=== PATIENT | male | born 2000 | race Hispanic/Latino ===

== ENCOUNTER 2025-01-22 11:14 | Emergency (ER) | payer SELFPAY ==
[2025-01-22] MEDS ORDERED: LIDOCAINE 2% W/EPI 1:200,000 MPF 20 ML VIAL IM ONE (11:42)
[2025-01-22] MEDS ORDERED: TDAP (DIPHTH,PERTUSS(ACELL),TET VAC) 0.5 ML VIAL IMVAC ONE (11:42)
[2025-01-22] MEDS ORDERED: HYDROCODONE/APAP 7.5/325 MG TAB ONE (11:42)
--- NOTE | 2025-01-22 13:03 | RAD REPORT ---
EXAM:Femur Left CLINICAL HISTORY: Left leg pain FINDINGS: No fracture seen Anterior soft tissue laceration mid to distal aspect of the leg. A radiopaque foreign body is not see n
--- NOTE | 2025-01-22 13:07 | ER ---
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 hb Coronavirus screen: At this time, the client does not indicate any symptoms associated with coronavirus-19. Ebola Screen: No symptoms or risks identified at this time. Initial Sepsis Screen: Does the patient meet any 2 criteria? No. Patient's initial sepsis screen is negative. Does the patient have a suspected source of infection? No. Patient's initial sepsis screen is negative. Risk Assessment: Do you want to hurt yourself or someone else? Patient reports no desire to harm self or others. Onset of symptoms was January 22, 2025. 11:36 Method Of Arrival: Ambulatory hb 11:36 Acuity: DANIELLE 4 hb Historical: - Allergies: 11:37 No Known Allergies; hb - Home Meds: 11:37 None [Active]; hb - PMHx: 11:37 None; hb - PSHx: 11:37 None; hb - Immunization history:: Adult Immunizations up to date. - Infectious Disease History:: Denies. - Social history:: Smoking status: Patient denies any tobacco usage or history of. Screenin:40 [facility] ED Fall Risk Assessment (Adult) History of falling in the last 3 months, aa5 including since admission No falls in past 3 months (0 pts) Confusion or Disorientation No (0 pts) Intoxicated or Sedated No (0 pts) Impaired Gait No (0 pts) Mobility Assist Device Used No (0 pt) Altered Elimination No (0 pt) Score/Fall Risk Level 0 - 2 = Low Risk Oriented to surroundings, Maintained a safe environment, Educated pt \T\ family on fall prevention, incl call for assistance when getting out of bed, Assessed \T\ reinforced patient's understanding of fall precautions. Abuse screen: Denies threats or abuse. Nutritional screening: No deficits noted. Tuberculosis screening: No symptoms or risk factors identified. Assessment: 11:40 General: Appears uncomfortable, Behavior is calm, cooperative. Pain: Complains of pain aa5 in left quadriceps Pain currently is 8 out of 10 on a pain scale. 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 Neuro: Level of Consciousness is awake, alert, obeys commands, Oriented to person, place, time, situation. Cardiovascular: Patient's skin is warm and dry. Respiratory: Airway is patent Respiratory effort is even, unlabored, Respiratory pattern is regular, symmetrical. GI: No signs and/or symptoms were reported involving the gastrointestinal system. : No signs and/or symptoms were reported regarding the genitourinary system. EENT: No signs and/or symptoms were reported regarding the EENT system. Derm: Skin is pink, warm \T\ dry. Musculoskeletal: Range of motion: intact in all extremities. Injury Description: Laceration sustained to left quadriceps is measuring approximately 3 in-4 in long, mild bleeding noted, bleeding controlled, gauze applied to site. Vital Signs: 11:36 BP 141 / 75; Pulse 111; Resp 16; Temp 98.3; Pulse Ox 100% ; Weight 58.97 kg; Height 5 hb ft. 1 in. ; Pain 7/10; 11:36 Body Mass Index 24.54 (58.97 kg, 155 cm) hb 11:36 Pain Scale: Adult hb ED Course: 11:18 Patient arrived in ED. cj3 11:18 Armando Kurtz PA is PHCP. cp 11:18 Adrian Atkins MD is Attending Physician. cp 11:32 Gisella Adams, RN is Primary Nurse. aa5 11:37 Triage completed. hb 11:38 Arm band placed on. hb 11:40 Patient has correct armband on for positive identification. Bed in low position. Call aa5 light in reach. Side rails up X 1. Adult w/ patient. Pulse ox on. NIBP on. 12:01 No provider procedures requiring assistance completed. aa5 12:42 XRAY Femur LEFT In Process Unspecified. EDMS 13:12 Dressings: non-adherent dressing x 1 left leg. zm 13:55 Patient did not have IV access during this emergency room visit. aa5 Administered Medications: 11:50 Drug: Hydrocodone-Acetaminophen PO (7.5 mg-325 mg) 1 tabs PO once; RASS on ADMIN: aa5 Combtv4, Very Agttd3, Agttd2, Rstlss1, AlertClm0, Drwsy-1, Lt Sdtn-2, Mod Sdtn-3, Dp Sdtn-4, UnArsble-5 Route: PO; 12:39 Follow up: Response: No adverse reaction aa5 11:55 Drug: Boostrix Tdap IM 0.5 ml IM once; as a single dose Route: IM; Site: right deltoid; aa5 12:39 Follow up: Response: No adverse reaction aa5 12:30 Drug: Lidocaine Infiltration (2 %) 20 ml 5 ml Infiltration once; with epinephrine jl7 {Note: administered by ERP.} Volume: 5 ml; Route: Infiltration; 13:12 Follow up: Response: No adverse reaction jl7 Medication: 11:55 Vaccine Information Statement (VIS) provided today. Questions and/or concerns aa5 addressed. VIS edition date: May 18, 2021. Outcome: 13:06 Discharge ordered by . david 13:55 Discharged to home ambulatory, jl7 13:55 Condition: stable 13:55 Discharge instructions given to patient, Instructed on discharge instructions, follow up and referral plans. medication usage, Demonstrated understanding of instructions, follow-up care, medications, Prescriptions given X 2, 13:56 Patient left the ED. jl7 Signatures: Dispatcher [employer] EDMS Gisella Adams, RN RN aa5 Armando Kurtz PA PA cp Baxter, Heather, RN RN Fili Guerrier RN RN jl7 Loraine Capellan Celeste 3
--- NOTE | 2025-01-22 13:07 | EDPHYS ---
Physician Documentation [facility] Name: Andres Proctor Age: 24 yrs Sex: Male : 2000 Arrival Date: 01/22/2025 Time: 11:14 Bed 6 Private MD: ED Physician Adrian Atkins HPI: 01/22 11:40 This 24 yrs old Male presents to ER via Ambulatory with complaints of cp Laceration To Leg. 11:40 The patient has a laceration occurred outdoors, and while using chainsaw The injury was cp accidental. The laceration(s) is(are) located on the lower left thigh. 11:40 Onset: The symptoms/episode began/occurred just prior to arrival. Associated signs and cp symptoms: The patient has no apparent associated signs or symptoms. Historical: - Allergies: 11:37 No Known Allergies; hb - Home Meds: 11:37 None [Active]; hb - PMHx: 11:37 None; hb - PSHx: 11:37 None; hb - Immunization history:: Adult Immunizations up to date. - Infectious Disease History:: Denies. - Social history:: Smoking status: Patient denies any tobacco usage or history of. ROS: 11:45 MS/extremity: Positive for laceration, of the left lower thigh, cp 11:45 Constitutional: history per hpi cp 11:45 Neuro: Negative for numbness, weakness, 11:45 All other systems are negative, Exam: 11:50 Constitutional: The patient appears in no acute distress, alert, awake, well developed, cp well nourished, uncomfortable, 11:50 Head/Face: Normocephalic, atraumatic. cp 11:50 Chest/axilla: Inspection: normal, 11:50 Cardiovascular: Rate: tachycardic, 11:50 Respiratory: the patient does not display signs of respiratory distress, Respirations: normal, no use of accessory muscles, no retractions, labored breathing, is not present, 11:50 Abdomen/GI: Inspection: abdomen appears normal, Palpation: abdomen is soft and non-tender, in all quadrants, 11:50 Back: pain, is absent, ROM is normal, 11:50 Musculoskeletal/extremity: Extremities: noted in the lower left thigh: transverse laceration 8 cm in length, mild active bleeding, no gross foreign body, fascia and body of muscle intact, ROM: full active range of motion, in the left knee, Perfusion: the extremity is normally perfused throughout, Sensation intact. 11:50 Neuro: Orientation: to person, place \T\ time. Mentation: is normal, Vital Signs: 11:36 BP 141 / 75; Pulse 111; Resp 16; Temp 98.3; Pulse Ox 100% ; Weight 58.97 kg; Height 5 hb ft. 1 in. ; Pain 7/10; 11:36 Body Mass Index 24.54 (58.97 kg, 155 cm) hb 11:36 Pain Scale: Adult hb Laceration: 13:02 Wound Repair of 8cm ( 3.1in ) subcutaneous laceration to left thigh. Linear shaped.. cp Distal neuro/vascular/tendon intact. Anesthesia: Wound infiltrated with 10 mls of 2% lidocaine. Wound prep: Moderate cleansing by me, Wound irrigation by me. Skin closed with 14 Christopher using staple gun. Dressed with Bacitracin, 4x4's. Patient tolerated well. MDM: 11:31 Medical Screening Exam initiated cp 13:05 Data reviewed: vital signs, nurses notes, radiologic studies, plain films, and as a cp result, I will discharge patient. 13:05 Differential diagnosis: superficial laceration, tendon injury, vascular injury, open cp fracture. I considered the following discharge prescriptions or medication management in the emergency department Medications were administered in the Emergency Department. See MAR. Independent interpretation of the following test(s) in the Emergency Department X-Ray: My interpretation is images of left femur negative for fracture. Counseling: I had a detailed discussion with the patient and/or guardian regarding the historical points, exam findings, and any diagnostic results supporting the discharge/admit diagnosis, radiology results, the need for outpatient follow up, a family practitioner, to return to the emergency department if symptoms worsen or persist or if there are any questions or concerns that arise at home. Response to treatment: the patient's symptoms have markedly improved after treatment, and as a result, I will discharge patient. Special discussion: I discussed in detail with the patient the higher chance of wound infection based on his presenting history. 01/22 11:38 Order name: XRAY Femur LEFT; Complete Time: 13:35 cp 01/22 13:35 Interpretation: Reviewed. cp 01/22 11:38 Order name: Dressing - Wound; Complete Time: 13:11 cp 01/22 11:38 Order name: Gloves, Sterile; Complete Time: 11:55 cp 01/22 11:38 Order name: Setup Suture Tray; Complete Time: 11:55 cp Administered Medications: 11:50 Drug: Hydrocodone-Acetaminophen PO (7.5 mg-325 mg) 1 tabs PO once; RASS on ADMIN: aa5 Combtv4, Very Agttd3, Agttd2, Rstlss1, AlertClm0, Drwsy-1, Lt Sdtn-2, Mod Sdtn-3, Dp Sdtn-4, UnArsble-5 Route: PO; 12:39 Follow up: Response: No adverse reaction aa5 11:55 Drug: Boostrix Tdap IM 0.5 ml IM once; as a single dose Route: IM; Site: right deltoid; aa5 12:39 Follow up: Response: No adverse reaction aa5 12:30 Drug: Lidocaine Infiltration (2 %) 20 ml 5 ml Infiltration once; with epinephrine jl7 {Note: administered by ERP.} Volume: 5 ml; Route: Infiltration; 13:12 Follow up: Response: No adverse reaction jl7 Disposition: 19:35 Co-signature as Attending Physician, Adrian Atkins MD I reviewed the patient's care rt provided by the Advanced Practice Provider and agree with the diagnosis and treatment plan. Disposition Summary: 01/22/25 13:06 Discharge Ordered Notes: Location: Home cp Problem: new cp Symptoms: have improved cp Condition: Stable cp Diagnosis - Left Thigh Laceration cp Followup: cp - With: Private Physician - When: 10 - 14 days - Reason: Staple/Suture removal Discharge Instructions: - Discharge Summary Sheet cp - Laceration Care, Adult cp - Sutured Wound Care cp Forms: - Medication Reconciliation Form cp - Antibiotic Education cp - Prescription Opioid Use cp - Patient Portal Instructions cp - Leadership Thank You Letter cp Prescriptions: - Cephalexin 500 mg Oral Capsule - take 1 capsule ORAL route every 8 hours for 10 days; 30 capsule; Refills: 0, cp Product Selection Permitted - Ibuprofen 600 mg Oral tablet - take 1 tablet ORAL route every 8 hours As needed take with food; 30 tablet; cp Refills: 0, Product Selection Permitted Signatures: Dispatcher [facility] Gisella Modi RN RN aa5 Armando Kurtz PA PA cp Baxter, Heather, RN RN hb Fili Guerrier RN RN jl7 Adrian Atkins MD MD rt
[2025-01-22 18:20] VITALS: BP 141/75; TEMP 98.3; O2SAT 100
== END 2025-01-22 13:56 | disposition home or self-care (01) ==
LOC: ER 11:14
DX: S71.112A Laceration without foreign body, left thigh, initial encounter (principal); W29.3XXA Contact with powered garden and outdoor hand tools and machinery, initial encounter
CPT/HCPCS: 90715; 96372; 99284